=== PATIENT | female | born 1985 | race Caucasian/White ===

== ENCOUNTER → 2020-09-17 14:51 | Outpatient (BNVA) | payer OTHER, SELFPAY | PROVIDERS: Family Provider Family Medicine; PCP Nurse Practitioner Family; Visit Provider Internal Medicine Cardiovascular Disease | DX: R07.9 Chest pain, unspecified (principal); R00.2 Palpitations; E03.9 Hypothyroidism, unspecified; Z82.49 Family history of ischemic heart disease and other diseases of the circulatory system; F17.200 Nicotine dependence, unspecified, uncomplicated | CPT/HCPCS: 80053; 84443; 85025 ==

== ENCOUNTER → 2021-01-29 13:17 | Outpatient (BNVA) | payer OTHER, SELFPAY | PROVIDERS: PCP Nurse Practitioner Family; Visit Provider Podiatrist Foot & Ankle Surgery | DX: M25.571 Pain in right ankle and joints of right foot (principal); G89.29 Other chronic pain; T84.84XA Pain due to internal orthopedic prosthetic devices, implants and grafts, initial encounter; M95.8 Other specified acquired deformities of musculoskeletal system | CPT/HCPCS: 73610 ==

== ENCOUNTER → 2021-03-05 09:45 | Outpatient (BNVA) | payer OTHER, SELFPAY | PROVIDERS: PCP Nurse Practitioner Family; Referring Provider Podiatrist Foot & Ankle Surgery; Visit Provider Podiatrist Foot & Ankle Surgery | DX: Z01.818 Encounter for other preprocedural examination (principal) | CPT/HCPCS: 87635 ==

== ENCOUNTER 2021-03-12 05:45 | Day surgery (SDC) | payer OTHER, SELFPAY ==
[2021-03-11 15:33] VITALS: BMI 42.7
[2021-03-12] VITALS (10 sets, daily range): BP systolic 107–134; BP diastolic 59–94; PULSE 66–94; RESP 12–18; TEMP 36.4–36.8; O2SAT 96–100
--- NOTE | 2021-03-12 06:45 | ANES.PREANE2 ---
Pre-Anesthetic Assessment Pre-Anesthetic Assessment: Height/Weight: Height 1.68 m Weight 120.202 kg Temp Pulse Resp BP Pulse Ox 97.7 F 68 18 116/84 100 03/12/21 06:13 03/12/21 06:13 03/12/21 06:13 03/12/21 06:13 03/12/21 06:13 Preop Diagnosis: Painful hardware right ankle Proposed Procedure: Operation Date: 03/12/21 07:00 Proposed Procedures p Deep hardware removal right ankle 56126 and 49303 T84.84XA(Not Applicable) - Chang Hatch DPM Was Beta Jefferson taken within 24 hours: N/A Was Clonidine taken within 24 hours: N/A Last intake: Intake Last Liquid Date 03/11/21 Last Liquid Time 20:00 Last Solid Date 03/11/21 Last Solid Time 20:00 Social: Social History: Tobacco and No alcohol Exam: Pre-Anes Outpt Exam: alert, oriented x 3, clear to auscultation bilaterally and regular rate & rhythm Airway: Submandibular: WNL Cervical ROM: WNL MP: 2 Dentition: Full History/ROS: No significant history except as noted Pulmonary: Pulmonary: COPD Metabolic: Metabolic: Morbid obesity Anesthetic Plan: ASA status: 2 Anesthesia: General Risk of > 500 ml blood loss (7ml/kg in children): No PFSH Anesthesia PFSH: Medical History Anxiety Depression Family history of coronary artery disease Hypothyroidism Surgical History Hx of hysterectomy Family History Father Hyperlipidemia Stroke Mother Hyperlipidemia Other Alcoholism CAD (coronary artery disease) Hx of CABG Myocardial infarction Social History Smoking and tobacco status: current every day smoker cigarettes Packs smoked per day: 0.5 Alcohol intake: current Alcohol intake frequency: holidays/special occasions only Data Anesthesia Cardiac Studies: No Data to Display
--- NOTE | 2021-03-12 06:51 | PM.OPSURHP ---
Providers/Chief Complaint Primary Care Provider: Dannielle Arce Chief Complaint: Deep hardware removal with arthroscopy right ankle History of Present Illness Nahomi Samuel is a 35 year old female with osteochondral defect and painful retained hardware to the right ankle. There is also hardware failure. She is here n.p.o. since midnight preparation for surgical intervention. Plan is a staged approach for her right ankle pain. Will start with hardware removal followed by MRI and planning for repair of OCD. She is accompanied by her mother. Patient denies any subjective nausea, vomiting, fever, chills, shortness of breath or chest pain. Review of Systems Const: Denies: fever(s), chills or fatigue Eyes: Denies: change in vision Card: Reports: swelling of feet/ankles; Denies: chest pain or palpitations Resp: Denies: dyspnea GI: Denies: abdominal pain, nausea, vomiting, diarrhea or constipation Musc: Reports: extremity pain Skin/Breast: Denies: changes in skin color Neuro: Reports: difficulty walking; Denies: numbness in extremities Medications/Allergies Home Medications Medication Instructions Recorded Confirmed Last Taken Type acetaminophen [Tylenol] 325 mg PO QID PRN 03/11/21 03/12/21 03/11/21 History ibuprofen 800 mg PO TID PRN 03/11/21 03/12/21 03/10/21 History Allergies Allergy/AdvReac Type Severity Reaction Status Date / Time amoxicillin Allergy ALGY-Anaphy Verified 03/11/21 15:32 laxis clindamycin Allergy ALGY-Hives Verified 03/11/21 15:32 enoxaparin [From Lovenox] Allergy ALGY-Hives Verified 03/11/21 15:32 latex Allergy ALGY-Bliste Verified 03/11/21 15:32 r Penicillins Allergy swelling Verified 03/05/21 18:37 and stops breathing povidone-iodine Allergy ALGY-Bliste Verified 03/11/21 15:32 [From Betadine] r soap [From Betadine] Allergy ALGY-Bliste Verified 03/11/21 15:32 r STERI STRIPS Allergy ALGY-Bliste Uncoded 03/11/21 15:32 r PFSH PFSH: Medical History Anxiety Depression Family history of coronary artery disease Hypothyroidism Surgical History Hx of hysterectomy Family History Father Hyperlipidemia Stroke Mother Hyperlipidemia Other Alcoholism CAD (coronary artery disease) Hx of CABG Myocardial infarction Social History Smoking and tobacco status: current every day smoker cigarettes Packs smoked per day: 0.5 Alcohol intake: current Alcohol intake frequency: holidays/special occasions only Dietary Habits: Caffeine: Yes Caffeine intake frequency: coffee Vital Signs Vitals Signs: Last Vital Signs Temp 97.7 F 03/12/21 06:13 Pulse 68 03/12/21 06:13 Resp 18 03/12/21 06:13 BP 116/84 03/12/21 06:13 Pulse Ox 100 03/12/21 06:13 Weight: Weight last 48 hrs Weight 265 lb Physical Exam Narrative: EXAM NARRATIVE: GENERAL: Patient is alert and oriented ?3 and in no acute distress. The following is a focused bilateral lower extremity exam. VASCULAR: Dorsalis pedis and posterior tibial arteries palpable +2. Capillary refill time less than 3 seconds to the distal hallux bilaterally. Calf is supple and nontender proximally and distally. No pedal edema appreciated. Pedal hair growth present. NEUROLOGICAL: Epicritic and protopathic sensations grossly intact to the lower extremities. +2 Achilles tendon reflex noted bilaterally. Negative Tinel sign upon percussion of lower extremity nerves. DERMATOLOGICAL: Lower extremity skin is well-hydrated, normal texture and turgor. There are no open sores or lesions noted to the lower extremities. No erythema or ecchymosis present to the bilateral legs and feet. Cicatrix right medial ankle. MUSCULOSKELETAL: Pain to palpation at the medial gutter and anterior medial aspect of the right ankle. Mild crepitus with range of motion of the right ankle. Muscle strength is 5 out of 5 in all 3 cardinal planes to the right foot and ankle. CARDIOVASCULAR: S1, S2, normal rate, normal rhythm. Dorsalis pedis and posterior tibial arteries palpable. LUNGS: Clear to auscltation, no use of acessory muscles, no crackles or wheezes. A&P Assessment and plan (1) Osteochondral defect of ankle: Status: Acute (2) Painful orthopaedic hardware: Status: Acute History of OCD to the right talar dome medial shoulder history of medial malleolus takedown and OCD repair by another surgeon believe this was done in [place]. She continues to have an OCD present that is symptomatic has failed hardware and painful retained hardware to the right ankle. I am recommending a staged approach starting with deep hardware removal followed by MRI believe that MRI with a hardware present would likely yield artifact and potentially produce a nondiagnostic image. She also complains of pain at hardware site. Hardware removal would be twofold, goal of alleviation of hardware pain as well as diagnostic imaging of MRI for evaluation of osteochondral defect. She may be a candidate for arthroscopic repair utilizing bio cartilage. Plan for deep hardware removal and diagnostic ankle scope under general anesthesia right ankle March 12, 2021. Risks include pain, bleeding, numbness, infection, failure to alleviate pain, hardware failure on extraction, failure to remove hardware and need for further surgical intervention. Deep hardware removal and arthroscopy right ankle. General anesthesia, duration of procedure 60 minutes, 03/12/2021 patient would benefit from popliteal block right lower extremity preoperatively per anesthesia. Coding Level of Care Code Acute Hydration Plant Operator for Rhonda Simons Diagnoses Osteochondral defect of ankle M95.8 Painful orthopaedic hardware T84.84XA
--- NOTE | 2021-03-12 06:55 | W.PM.OPSUD ---
Surgery/Procedure H&P Update DATE OF PROCEDURE: March 12, 2021 DATE H&P PERFORMED: 03/12/21 H&P UPDATE INFORMATION: I have reviewed H&P completed within last 30 days, I have examined patient prior to procedure, No changes to prior documentation and H&P is in [facility] EMR on date indicated PREOP DIAGNOSIS: Painful hardware right ankle PLANNED PROCEDURE: Operation Date: 03/12/21 07:00 Proposed Procedures p Deep hardware removal right ankle [id number] and 10858 T84.84XA(Not Applicable) - Chang Hatch DPM
[2021-03-12] MEDS: sulfamethoxazole-trimeth DS 160-800 mg Tablet 1 TAB PO (07:04)
[2021-03-12] MEDS: sodium chloride 0.9% 1,000 ML 30 ML IV (07:10)
[2021-03-12] MEDS: lidocaine 1% INJ 20 mL INJECTION (07:44)
--- NOTE | 2021-03-12 08:20 | XR_ITS ---
WS: [id number] Right ankle, 3 views, 03/12/2021 Clinical Data: post op Comparison: Right ankle, 01/29/2021. Findings: The medial plate on the distal right tibia has been removed. The orthopedic screws have been removed. There is a small fragment in the middle screw tunnel. There is a larger distal fragment in the dista l screw tunnel. XR/XR ankle RT min 3V* [id number] Impression: Removal of plate and screws from internal fixation of distal right tibial fract ure.
--- NOTE | 2021-03-12 08:20 | P.PCN_ITS ---
PACU note PACU note: VSS, Good respiratory effort, report to MARINE SERVICE MANAGER Post-Anesthesia Exam: awake
--- NOTE | 2021-03-12 08:20 | PM.PACU ---
PACU note PACU note: VSS, Good respiratory effort, report to SWAMPER Post-Anesthesia Exam: awake
[2021-03-12] MEDS: fentaNYL 50 mcg/mL INJ 2mL IVP (08:23)
--- NOTE | 2021-03-12 08:24 | PM.OP ---
Operative Report Date of procedure: March 12, 2021 Pre-op Diagnosis: Painful hardware right ankle Post-op diagnosis: same Post-op Findings: None Procedure Done: Deep hardware removal right ankle Implants: 2-0 Vicryl, 4-0 Vicryl, 4-0 nylon Specimens removed/disposition: 4 screws 1 washer 1 plate Pathology: none sent Surgeon: Chang Hatch D.P.M. Quality Assurance Project Manager: Miri Anesthesia: General Estimated blood loss: Less than 5 mL Tourniquet time: See intraoperative documentation IV fluids: None Urine output: None Complications: None Condition: stable Disposition: PACU Brief History: Painful osteochondral defect operated while she was in the with a medial mall takedown, hardware failure at one of the tibial screws, persistent osteochondral defect requiring further surgical intervention. Will be a staged procedure with initial step of hardware removal followed by MRI for surgical planning of osteochondral defect repair. Patient has had pain with everyday activity standing and walking would like to proceed with surgery. Has been n.p.o. since midnight. Is accompanied by her mother. Informed consent signed by the patient myself. Initial right ankle. Risks include but are not limited to pain, bleeding, numbness, infection, failure to retrieve hardware, hardware breakage, failure to alleviate pain, need for further surgical intervention. Patient is agreeable wishes to proceed. No guarantees written, expressed or implied. Procedure: Under mild sedation the patient was brought to the operating room and placed on the operating table in supine position. A timeout was performed. Anesthesia was then induced by the anesthesia service. Local anesthesia injected by myself total of 20 cc of one-to-one mixture 1% lidocaine and 0.5% Marcaine plain medial ankle block. Well-padded pneumatic tourniquet applied to the right calf. Right lower extremity was scrubbed, prepped and draped utilizing normal aseptic technique. Right foot and ankle were then examined a weighted with an Esmarch bandage and a tourniquet inflated to 250 mmHg. Attention was directed to the previous cicatrix at the medial malleolus right ankle where a linear longitudinal incision was made directly over the previous incision carried down through skin and subcutaneous tissue utilizing a combination of blunt and sharp technique. Care was taken to retract and preserve neurovascular and tendinous structures. All bleeders were ligated and cauterized as necessary. Periosteal incision was made and total of 4 screws 1 plate 1 washer were removed and passed from operative field. 1 screw had broken prior to surgery this was documented on preop x-ray greater than 1 year ago. In my opinion the surgical trauma of removing the threads deep will be more traumatic than leaving the screw. My concern was trapped fine around the screw that had appropriate diameter would violate the ankle mortise at the tibial plafond. This was left intact for this reason. Incision was flushed with saline solution followed by closure of 2-0 Vicryl periosteum, 4-0 Vicryl subcutaneous tissue and 4-0 nylon at skin. Area was dressed with Adaptic, sterile 4 x 4, Kerlix and Aditya wrap. Cam boot was applied. Tourniquet was deflated and a prompt hyperemic response is noted to the distal digits of the right foot. Patient tolerated the procedure and anesthesia well and was transferred to the PACU with vital signs stable and vascular status intact. Following a period of postop monitoring she will be discharged home may be weightbearing as tolerated to elevate her right foot while at rest was provided my cell phone number to be contacted with any questions or concerns. She also provided Bactrim and pain medication to be taken judiciously as needed for pain.
[2021-03-12] MEDS: HYDROcodone-acetaminophen 10-325 mg Tablet 1 TAB PO (09:08)
--- NOTE | 2021-03-12 15:52 | ANE.PACU2 ---
Inpatient post-anesthesia follow up: Airway intact: Yes Vital signs: Temperature 97.6 F Pulse Rate 66 Respiratory Rate 18 Blood Pressure 134/94 Pulse Oximetry 99 Oxygen Delivery Me thod Room Air Oxygen Flow Rate 8 Fraction of Inspir ed Oxygen Hydration adequate: Yes Nausea and vomiting: No Pain level: 2 Mental status: Baseline
== END 2021-03-12 09:29 | disposition home or self-care (01) ==
PROVIDERS: PCP Nurse Practitioner Family; Visit Provider Podiatrist Foot & Ankle Surgery
PROC: (CPT 20680; principal; 2021-03-12 07:00)
DX: T84.84XA Pain due to internal orthopedic prosthetic devices, implants and grafts, initial encounter (principal); F41.9 Anxiety disorder, unspecified; F32.9 Major depressive disorder, single episode, unspecified; E03.9 Hypothyroidism, unspecified; Z82.49 Family history of ischemic heart disease and other diseases of the circulatory system; F17.210 Nicotine dependence, cigarettes, uncomplicated; J44.9 Chronic obstructive pulmonary disease, unspecified; E66.01 Morbid (severe) obesity due to excess calories; Z68.41 Body mass index [BMI] 40.0-44.9, adult
CPT/HCPCS: 20680; 73610; J2405; J2704; J3010; J3490; J7030

== ENCOUNTER 2021-04-06 14:04 | Outpatient (CLI) | payer OTHER, SELFPAY ==
--- NOTE | 2021-04-06 14:30 | MR_ITS ---
WS: [id number] MRI RIGHT ANKLE NONCONTRAST TECHNIQUE: Sagittal proton density, sagittal STIR, axial proton density, axial T1, axial T2 fat sat, coronal proton density, coronal proton density fat sat, coronal T2 fat sat. 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 Palpable marker overlying the medial malleolus. Soft tissue edema involving the medial malleolar soft tissues consistent with recent posto perative changes. Normal lateral malleolus. Osteochondral defect with fragmentation involving the med ial talar dome with sclerosis and edema. This measures approximately 8 x 6 mm. Associated depression and fragmentation. Distal Achilles appears normal. Normal peroneal tendon sheath. Normal peroneus longus and brevis. Sma ll amount of tenosynovitis along the tibialis posterior. Remainder of the extensor and flexor compart ment tendons are unremarkable. Normal plantar aponeurosis. Normal calcaneus. Normal navicular. Hypert rophic changes involving the talar neck. Normal talocalcaneal articulation. Recent hardware removal involving the distal tibial plafond and medial malleolus with screw tracts. S usceptibility artifact with screw fragment involving the distal tibial plafond unchanged since the pr ior examinations. Mild degenerative arthritis ankle mortise. Soft tissue edema. Additional tiny screw fragment in the mid tibial diametaphysis unchanged from the prior radiograph. MR/MR ankle RT wo con* [id number] IMPRESSION: 1. Osteochondral defect involving the medial talar dome with fragmentation and depression consistent with avascular necrosis. Associated sclerosis with a sma ll amount of edema. 2. Postoperative changes about the medial malleolus with subcutaneous soft tis cassandra edema. No drainable fluid collections. 3. Small amount of tenosynovitis involving the tibialis posterior near the pal pable marker. 4. Normal peroneus longus and brevis. Distal Achilles appears normal. 5. Prior hardware removal with retained screw fragments described above.
== END 2021-04-06 14:05 | disposition home or self-care (01) ==
PROVIDERS: PCP Nurse Practitioner Family; Visit Provider Podiatrist Foot & Ankle Surgery
DX: M79.671 Pain in right foot (principal); M65.9 Synovitis and tenosynovitis, unspecified; M21.6X1 Other acquired deformities of right foot
CPT/HCPCS: 73721

== ENCOUNTER → 2021-07-05 15:04 | Outpatient (BNVA) | payer OTHER, SELFPAY | PROVIDERS: PCP Nurse Practitioner Family; Visit Provider Podiatrist Foot & Ankle Surgery | DX: Z20.822 Contact with and (suspected) exposure to COVID-19 (principal); M95.8 Other specified acquired deformities of musculoskeletal system | CPT/HCPCS: 87635 ==

== ENCOUNTER 2021-07-09 06:58 | Day surgery (SDC) | payer OTHER, SELFPAY ==
[2021-07-08 13:39] VITALS: BMI 41.9
[2021-07-09] VITALS (11 sets, daily range): BP systolic 101–130; BP diastolic 68–86; PULSE 71–86; RESP 12–21; TEMP 36.1–36.5; O2SAT 94–99
[2021-07-09] MEDS: sodium chloride 0.9% 1,000 ML 30 ML IV (07:55)
--- NOTE | 2021-07-09 08:15 | ANES.PREANE2 ---
Pre-Anesthetic Assessment Pre-Anesthetic Assessment: Height/Weight: Height 1.68 m Weight 117.934 kg Temp Pulse Resp BP Pulse Ox 97.7 F 71 18 130/86 98 07/09/21 07:54 07/09/21 07:54 07/09/21 07:54 07/09/21 07:54 07/09/21 07:54 Preop Diagnosis: Osteochondral defect right ankle Proposed Procedure: Operation Date: 07/09/21 09:10 Proposed Procedures p Ankle Arthroscopy with debridment and repair of osteochondral defect. [id number] M26.622(Right) - Chang Hatch DPM Familial anesthetic complications: NOne Was Beta Jefferson taken within 24 hours: N/A Was Clonidine taken within 24 hours: N/A Last intake: Intake Last Liquid Date 07/08/21 Last Liquid Time 20:00 Last Solid Date 07/08/21 Last Solid Time 19:00 Social: Social History: Tobacco and No alcohol Exam: Pre-Anes Outpt Exam: alert, oriented x 3, clear to auscultation bilaterally and regular rate & rhythm Airway: Cervical ROM: WNL MP: 3 Dentition: Other (1 missing tooth) Metabolic: Metabolic: Morbid obesity and Thyroid Anesthetic Plan: ASA status: 2 Risk of > 500 ml blood loss (7ml/kg in children): No Meds/Allergies Current Medications: Current Medications Generic Name Dose Route Start Last Admin Trade Name Freq PRN Reason Stop Dose Admin Sodium Chloride 1,000 mls @ 30 ml s/hr 07/09/21 07:30 07/09/21 07:55 Sodium Chloride 0.9% IV 07/10/21 07:29 30 mls/hr .Q24H THOMAS Administration PFSH Anesthesia PFSH: Medical History Anxiety Depression Family history of coronary artery disease Hypothyroidism Surgical History Hx of hysterectomy Family History Father Hyperlipidemia Stroke Mother Hyperlipidemia Other Alcoholism CAD (coronary artery disease) Hx of CABG Myocardial infarction Social History Alcohol intake: current Alcohol intake frequency: holidays/special occasions only Data Anesthesia Cardiac Studies: No Data to Display
--- NOTE | 2021-07-09 09:15 | W.PM.OPSUD ---
Surgery/Procedure H&P Update DATE OF PROCEDURE: July 09, 2021 DATE H&P PERFORMED: 07/05/21 H&P UPDATE INFORMATION: I have reviewed H&P completed within last 30 days, I have examined patient prior to procedure, No changes to prior documentation and H&P is in [facility] EMR on date indicated PREOP DIAGNOSIS: Osteochondral defect right ankle PLANNED PROCEDURE: Operation Date: 07/09/21 09:10 Proposed Procedures p Ankle Arthroscopy with debridment and repair of osteochondral defect. [id number] M26.622(Right) - Chang Hatch DPM
--- NOTE | 2021-07-09 09:16 | P.OP_ITS ---
Operative Report Date of procedure: July 09, 2021 Pre-op Diagnosis: Osteochondral defect right ankle Post-op diagnosis: same Post-op Findings: Impressive osteochondral defect at the medial shoulder of the left talus Procedure Done: Ankle arthroscopy with extensive debridement and osteochondral defect repair. CPT code 34488 Implants: 4-0 nylon, Arthrex bio cartilage 1 cc Surgeon: Chang Hatch D.P.M. 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 Risks include pain, bleeding, numbness, infection, neuritis, superficial peroneal neuritis, failure to alleviate pain and need for further surgical intervention. Patient is agreeable wishes to proceed no guarantees written, expressed or implied. Procedure: Under mild sedation the patient was brought to the operating room and placed on the operating table in supine position. A timeout was performed. Anesthesia was then administered by the anesthesia service. Well-padded pneumatic tourniquet is applied to the left high calf. Left lower extremity was then scrubbed, prepped and draped utilizing normal aseptic technique. Bone marrow aspirate kit utilized to harvest 60 cc of bone marrow aspirate from the left calcaneus lateral approach this area was then flushed and closed with single nylon stitch. This was passed to the back table to be spun down to PRP to be mixed with extra cell layer matrix. Attention was then directed to the left anterior ankle or medial lateral borders were established in standard fashion medial to the tibialis anterior and lateral to the peroneus tertius. Extensive debridement performed of hemorrhagic synovitis and free-floating cartilaginous flaps were excised, microfracture performed and a viable margin of the osteochondral defect was established utilizing curettage, ankle was then dried of fluid and the defect filled with extracellular matrix with glue covering. After 5 minutes smooth range of motion was appreciated of the left ankle. Incision sites were flushed with saline solution and closed with 4-0 nylon stitch. Incision sites were then dressed with Adaptic, sterile 4 x 4, Kerlix and Aditya wrap. Cam boot was applied. Tourniquet was deflated and a prompt hyperemic response was noted to the distal digits of the left foot. Patient tolerated the procedure and anesthesia well was transferred to the PACU with vital signs stable and vascular status intact. She is to remain strict nonweightbearing to the left lower extremity for the ne xt 6 weeks. She will be given a prescription for crutches to be filled out part of the [employer] equipment.
[2021-07-09] MEDS: vancomycin 1,500 MG/300 ML PIGGYBACK 200 MG IV (09:29)
--- NOTE | 2021-07-09 10:04 | SUR.OPER ---
1004 acd-a 30 ML added to sterile field for dr redding to use. REF PN [id number] [facility] [id number] LOT [id number] EXP
--- NOTE | 2021-07-09 11:48 | XR_ITS ---
WS: [id number] Right ankle, 3 views, 07/09/2021 Clinical Data: post op Comparison: Right ankle, 03/12/2021. Findings: There are postsurgical tunnels in the distal tibia. In the middle tunnel there is a small remaining f ragment. In the distal tunnel there is a screw fragment. Inferior to the medial malleolus there is a small fragment. The ankle mortise shows irregularity especially of the medial aspect. No new fractures are seen. XR/XR ankle RT min 3V* [id number] Impression: 1. No change in appearance of the postsurgical tunnels and fragment retention. 2. Osteoarthritis of the ankle mortise especially the medial and posterior aspe ct.
[2021-07-09] MEDS: fentaNYL 50 mcg/mL INJ 2mL IVP (11:59)
[2021-07-09] MEDS: oxyCODONE-APAP 10-325 mg Tablet 1 TAB PO (12:52)
--- NOTE | 2021-07-09 14:19 | ANE.PACU2 ---
Inpatient post-anesthesia follow up: Airway intact: Yes Vital signs: Temperature 97 F Pulse Rate 74 Respiratory Rate 16 Blood Pressure 125/85 Pulse Oximetry 98 Oxygen Delivery Me thod Room Air Oxygen Flow Rate Fraction of Inspir ed Oxygen Hydration adequate: Yes Nausea and vomiting: No Pain level: 2 Mental status: Baseline
== END 2021-07-09 13:25 | disposition home or self-care (01) ==
PROVIDERS: PCP Nurse Practitioner Family; Visit Provider Podiatrist Foot & Ankle Surgery
PROC: (CPT 29898; principal; 2021-07-09 09:00)
DX: M25.571 Pain in right ankle and joints of right foot (principal); T84.84XA Pain due to internal orthopedic prosthetic devices, implants and grafts, initial encounter; E03.9 Hypothyroidism, unspecified; I25.2 Old myocardial infarction; F17.210 Nicotine dependence, cigarettes, uncomplicated; Z86.73 Personal history of transient ischemic attack (TIA), and cerebral infarction without residual deficits; Z88.0 Allergy status to penicillin; Z88.2 Allergy status to sulfonamides; Z88.1 Allergy status to other antibiotic agents; Z91.040 Latex allergy status; Z82.49 Family history of ischemic heart disease and other diseases of the circulatory system
CPT/HCPCS: 29898; 73610; C1762; J1100; J1885; J2405; J2704; J2795; J3010; J3370; J3490; J7030

== ENCOUNTER → 2021-07-26 12:45 | Outpatient (BNVA) | payer OTHER, SELFPAY | PROVIDERS: PCP Nurse Practitioner Family; Visit Provider Podiatrist Foot & Ankle Surgery | DX: M95.8 Other specified acquired deformities of musculoskeletal system (principal); M25.579 Pain in unspecified ankle and joints of unspecified foot; T84.84XA Pain due to internal orthopedic prosthetic devices, implants and grafts, initial encounter; X58.XXXA Exposure to other specified factors, initial encounter | CPT/HCPCS: 73610 ==

== ENCOUNTER 2021-08-25 10:48 | Outpatient (CLI) | payer OTHER, SELFPAY | END 2021-08-25 10:49 | disposition home or self-care (01) | LOC: SPT 10:51 | PROVIDERS: PCP Nurse Practitioner Family; Visit Provider Podiatrist Foot & Ankle Surgery | DX: Z46.89 Encounter for fitting and adjustment of other specified devices (principal); M95.8 Other specified acquired deformities of musculoskeletal system; T84.84XD Pain due to internal orthopedic prosthetic devices, implants and grafts, subsequent encounter | CPT/HCPCS: L1902 ==

== ENCOUNTER → 2022-10-31 09:02 | Outpatient (BNVA) | payer OTHER, SELFPAY | PROVIDERS: PCP Nurse Practitioner Family; Visit Provider Podiatrist Foot & Ankle Surgery | DX: T84.84XA Pain due to internal orthopedic prosthetic devices, implants and grafts, initial encounter (principal); Y79.2 Prosthetic and other implants, materials and accessory orthopedic devices associated with adverse incidents; M95.8 Other specified acquired deformities of musculoskeletal system | CPT/HCPCS: 73610 ==

== ENCOUNTER 2023-08-07 09:13 | Outpatient (CLI) | payer OTHER, SELFPAY ==
--- NOTE | 2023-08-07 09:30 | MR_ITS ---
WS: [id number] MRI RIGHT ANKLE WITHOUT CONTRAST. COMPARISON: Prior MRI 04/06/2021. Radiograph 10/31/2022 Multiplanar, multisequence imaging is performed without contrast. Artifact noted to the distal tibia and fibula retained screw fragment set of been previously describe d. Distortion of the soft tissues and osseous structures. There is a large osteochondral defect involving the lateral talar dome measuring at least 10 x 11 mm. There are several bony fragments although not a lot of edema. Bony fragments extends into the tibiot alar joint space. There is narrowing of the tibiotalar joint space but not a significant amount of fl uid. Seen only on the coronal imaging may be an additional osteochondral defect along the more latera l distal talus. This could be a small fragment or loose body closely associated with the attachment o f the deltoid ligament. Distal fibula is intact. Achilles tendon and the peroneal tendons are normal. No significant joint ef fusion. Flexor and extensor tendon tendons are normal. Tibialis posterior tendon is normal today. No ligament tear identified. IMPRESSION: 1. Moderate to large osteochondral defect involving the medial talar dome. There are multiple associa severo osseous fragments. Some of these osseous fragments extend into the tibiotalar joint space. Modera te narrowing of the tibiotalar joint. Although no loose bodies identified in the joint space the frag ments do encroach into the joint space, similar to the prior exam. 2. There is an additional possible osteochondral defect noted at the site of the deltoid ligament att achment to the talus. This was not seen on the prior study. Only seen on a few sequences today. 3. No significant joint effusion. 4. Study compromised by artifact from the retained hardware in the distal tibia.
== END 2023-08-07 09:14 | disposition home or self-care (01) ==
LOC: RAD 09:14
PROVIDERS: PCP Nurse Practitioner Family; Visit Provider Podiatrist Foot & Ankle Surgery
DX: M21.6X1 Other acquired deformities of right foot (principal); T84.84XA Pain due to internal orthopedic prosthetic devices, implants and grafts, initial encounter; Y79.2 Prosthetic and other implants, materials and accessory orthopedic devices associated with adverse incidents; Z98.890 Other specified postprocedural states
CPT/HCPCS: 73721

== ENCOUNTER 2023-08-08 14:52 | Outpatient (CLI) | payer OTHER, SELFPAY | END 2023-08-08 14:53 | disposition home or self-care (01) | LOC: SPT 14:56 | PROVIDERS: PCP Nurse Practitioner Family; Visit Provider Podiatrist Foot & Ankle Surgery | DX: Z46.89 Encounter for fitting and adjustment of other specified devices (principal); M95.8 Other specified acquired deformities of musculoskeletal system | CPT/HCPCS: 97760; L4361 ==

== ENCOUNTER 2024-02-01 14:30 | Outpatient (RCR) | payer OTHER, SELFPAY | END 2024-02-25 23:59 | disposition home or self-care (01) | LOC: SPT 14:30 | PROVIDERS: PCP Nurse Practitioner Family; Visit Provider Podiatrist | DX: Z47.1 Aftercare following joint replacement surgery (principal); Z96.661 Presence of right artificial ankle joint | CPT/HCPCS: 97110; 97161; G0283 ==

== ENCOUNTER 2024-02-26 06:00 | Outpatient (RCR) | payer OTHER, SELFPAY | END 2024-03-27 23:59 | disposition home or self-care (01) | LOC: SPT 06:00 | PROVIDERS: PCP Nurse Practitioner Family; Visit Provider Podiatrist | DX: Z47.1 Aftercare following joint replacement surgery (principal); Z96.661 Presence of right artificial ankle joint | CPT/HCPCS: 97110 ==

== ENCOUNTER 2024-09-09 11:54 | Emergency (ER) | payer MEDICAID, SELFPAY ==
[2024-09-09 11:58] VITALS: BP 119/73; PULSE 90; TEMP 36.7; O2SAT 98
--- NOTE | 2024-09-09 13:50 | XR_ITS ---
WS: [id number] XR sacrum coccyx min 2V [id number] REASON FOR EXAM: slip fall ice, pain FINDINGS: No acute abnormality of the sacrum. Fracture of the third from the last coccygeal segment with mild anterior displacement of the distalmo st fragment and widening of the articular interval between the fractured coccygeal segment and the ne xt inferior coccygeal segment. XR/XR sacrum coccyx min 2V [id number] IMPRESSION: Coccygeal fracture as above.
--- NOTE | 2024-09-09 13:50 | XR_ITS ---
WS: [id number] XR lumbar spine 2-3V* [id number] REASON FOR EXAM: slip fall ice, pain FINDINGS: Minimal rotatory levoscoliosis. Mild straightening of the normal lordosis. No acute compression fracture. Intervertebral disc spaces are intact and relatively well preserved. No spondylolisthesis or spondylolysis. Spina bifida occulta of S1. XR/XR lumbar spine 2-3V* [id number] IMPRESSION: No acute abnormality.
--- NOTE | 2024-09-09 14:20 | W.ED.BACK ---
HPI - Back Pain/Injury General: Chief Complaint: Back Pain/Injury Stated Complaint: fell down stairs Time Seen by Provider: 09/09/24 13:10 Source: patient Mode of arrival: ambulatory Limitations: no limitations History of Present Illness: 39yo female presents with low back and tailbone pain following a slip and fall on the ice this morning. Patient reports that she was on her bottom step and went to step down, but slipped on the ice. States that she landed directly on her tailbone/buttocks. Reports that she is able to sit on her left hip area, but not directly on her buttocks. States that when she stands she does have tightening of the entire pelvic region. She denies hitting her head, loss consciousness, incontinence, any other concern at this time. Patient reports previous hysterectomy. Related Data Home Medications Medication Instructions Recorded Confirmed acetaminophen 325 mg capsule 325 mg PO QID PRN Pain 03/11/21 08/08/23 (Tylenol) ibuprofen 800 mg tablet 800 mg PO TID PRN Pain 03/11/21 08/08/23 levothyroxine 50 mcg capsule 50 mcg PO DAILY 05/24/23 08/08/23 Previous Rx's Medication Instructions Recorded albuterol sulfate 90 mcg/actuation 2 puff inhalation Q6H #8.5 grams 05/24/23 aerosol inhaler azithromycin 250 mg tablet See Rx Instructions PO .COMPLEX #6 05/24/23 tabs fluticasone propionate 50 1 spray intranasal DAILY PRN 05/24/23 mcg/actuation nasal allergy symptoms #16 grams spray,suspension CAM walker #1 ea 08/08/23 tramadol 50 mg tablet 50 mg PO Q8H PRN pain 30 days #90 09/19/23 tabs cyclobenzaprine 10 mg tablet 10 mg PO TID PRN muscle spasm #20 09/09/24 tabs hydrocodone 5 mg-acetaminophen 325 1 tab PO Q8H PRN pain #9 tabs 09/09/24 mg tablet ondansetron 4 mg disintegrating 4 mg PO Q8H PRN nausea and 09/09/24 tablet vomiting #20 tabs Allergies Allergy/AdvReac Type Severity Reaction Status Date / Time Sulfa (Sulfonamide Allergy Intermediate Bad Rash, Verified 09/09/24 12:05 Antibiotics) and eyes swollen shut adhesive Allergy ALGY-Bliste Verified 09/09/24 12:05 r amoxicillin Allergy ALGY-Anaphy Verified 09/09/24 12:05 laxis clindamycin Allergy ALGY-Hives Verified 09/09/24 12:05 enoxaparin [From Lovenox] Allergy ALGY-Hives Verified 09/09/24 12:05 latex Allergy ALGY-Bliste Verified 09/09/24 12:05 r Penicillins Allergy swelling Verified 09/09/24 12:05 and stops breathing povidone-iodine Allergy ALGY-Bliste Verified 09/09/24 12:05 [From Betadine] r soap [From Betadine] Allergy ALGY-Bliste Verified 09/09/24 12:05 r PFSH ED PFSH: Medical History Family history of coronary artery disease Depression Anxiety Hypothyroidism Surgical History Hx of hysterectomy Family History Father Hyperlipidemia Stroke Mother Hyperlipidemia Other Alcoholism CAD (coronary artery disease) Hx of CABG Myocardial infarction Social History Smoking and tobacco/nicotine status: current every day tobacco/nicotine user cigarettes Packs smoked per day: 0.5 Alcohol intake: current Alcohol intake frequency: holidays/special occasions only Substance/Drug Use: never Course Vital Signs: Vital signs: Vital Signs Temperature 98.1 F 09/09/24 11:58 Pulse Rate 90 09/09/24 11:58 Blood Pressure 119/73 09/09/24 11:58 Pulse Oximetry 98 09/09/24 11:58 Oxygen Delivery Me thod Room Air 09/09/24 11:58 MDM - Back Pain/Injury Medical Decision Making 39yo female presents with low back and tailbone pain following a slip and fall on the ice this morning. Patient reports that she was on her bottom step and went to step down, but slipped on the ice. States that she landed directly on her tailbone/buttocks. Reports that she is able to sit on her left hip area, but not directly on her buttocks. States that when she stands she does have tightening of the entire pelvic region. She denies hitting her head, loss consciousness, incontinence, any other concern at this time. Patient reports previous hysterectomy. Patient is nontoxic in appearance. Vital signs are stable. Differential diagnoses include but are not limited to: Coccyx fracture, pelvic fracture, lumbar fracture, contusion, muscle strain Will proceed with x-ray imaging of the lumbar spine as well as coccyx. Patient did receive ketorolac and orphenadrine while in the emergency department to help with her pain. X-ray does show coccygeal fracture. No bony abnormality noted of the lumbar spine. Discussed these findings with patient. Patient initially reported no improvement in her pain after ketorolac and orphenadrine, but reported some improvements as she was able to ambulate to the bathroom and reported her pain as 4/10. Discussed fracture with patient. Advised we would proceed with a short course of pain medication for severe pain as well as cyclobenzaprine and ondansetron to patient's pharmacy. Sedation precautions provided with pain medications. Discussed with patient use of [id number] stool softeners due to the increased risk of constipation with pain medications. Recommend patient follow-up with primary care, call in the next few days with an update of symptoms and to discuss to recheck. Recommend return to the emergency department if any rapid worsening symptoms, further injury, and as needed. Patient states understanding and has no further questions or concerns at this time. Medical Records I reviewed the patient's medical records. Labs I reviewed the patient's lab results. Radiology Impressions Lumbar Spine X-Ray 09/09/24 13:50 IMPRESSION: No acute abnormality. Sacrum and Coccyx X-Ray 09/09/24 13:50 IMPRESSION: Coccygeal fracture as above. All radiology interpretation(s) finalized by discharge Discharge Plan Discharge Patient Disposition: Home Clinical Impression: Closed fracture of coccyx Qualifiers: Encounter type: initial encounter Qualified Code(s): S32.2XXA - Fracture of coccyx, initial encounter for closed fracture Fall from slipping on ice Qualifiers: Encounter type: initial encounter Qualified Code(s): W00.9XXA - Unspecified fall due to ice and snow, initial encounter Condition: Stable Prescriptions: New cyclobenzaprine 10 mg tablet 10 mg PO TID PRN (Reason: muscle spasm) Qty: 20 0RF ondansetron 4 mg tablet,disintegrating 4 mg PO Q8H PRN (Reason: nausea and vomiting) Qty: 20 0RF hydrocodone-acetaminophen 5-325 mg tablet 1 tab PO Q8H PRN (Reason: pain) Qty: 9 0RF Held tramadol 50 mg tablet 50 mg PO Q8H PRN (Reason: pain) 30 Days Qty: 90 0RF Hold Instructions: Resume on 09/12/24. Hold while taking hydrocodone No Action levothyroxine 50 mcg capsule 50 mcg PO DAILY azithromycin 250 mg tablet See Rx Instructions PO .COMPLEX Qty: 6 0RF Rx Instructions: For 250 mg dose pack: take 500 mg today (day 1), then 250 mg for 4 days (days 2-5) PO albuterol sulfate 90 mcg/actuation HFA aerosol inhaler 2 puff inhalation Q6H Qty: 8.5 0RF Rx Instructions: 2 puffs inhaled every 6 hours as needed fluticasone propionate 50 mcg/actuation spray,suspension 1 spray intranasal DAILY PRN (Reason: allergy symptoms) Qty: 16 0RF Rx Instructions: administer into each nostril (DME) SATHISH patton See Rx Instructions .Route .MEDSUPPLY Qty: 1 0RF Rx Instructions: As directed ibuprofen 800 mg Tablet 800 mg PO TID PRN (Reason: Pain) acetaminophen [Tylenol] 325 mg Capsule 325 mg PO QID PRN (Reason: Pain) Discharge Orders: Discharge ED (Routine); Ordered 09/09/24 Ordered By: Tigre Zhao Referrals: Dannielle Arce, WORKERS COMPENSATION ADMINISTRATOR [Primary Care Provider] - Patient Instructions: Coccyx Injury (ED), Opioid Safety, Pain Management Activity Restrictions/Additional Instructions: You do have a coccyx fracture noted on the x-ray. There is no specific treatment for coccyx fracture, just symptomatic care You may use a travel neck pillow as a cushion to sit on to avoid pressure on the coccyx Short course hydrocodone was sent to your pharmacy for use for severe pain. Please do not take tramadol or any other narcotic medication while taking hydrocodone Cyclobenzaprine has been sent to your pharmacy for mild to moderate pain as well as muscular pain that can be associated with a coccyx fracture. Please do not drive operate heavy machinery while taking either hydrocodone or cyclobenzaprine Ondansetron has been sent to the pharmacy for nausea that is often associated with pain medications. Avoid bending and heavy lifting for the next several days. Activity as tolerated Follow-up with primary care, call in the next 1 to 2 days with an update of symptoms and to discuss to recheck Return to the emergency department if any rapid worsening symptoms, further injury, and as needed. 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
[2024-09-09] MEDS: orphenadrine 30 mg/mL Inj 2 mL 60 MG IM (14:23)
[2024-09-09] MEDS: ketorolac 30 mg/mL INJ IM (14:23)
[2024-09-09 15:46] VITALS: BP 116/82; PULSE 80; O2SAT 97
== END 2024-09-09 15:47 | disposition home or self-care (01) ==
PROVIDERS: Emergency Provider Nurse Practitioner; PCP Nurse Practitioner Family
DX: S32.2XXA Fracture of coccyx, initial encounter for closed fracture (principal); W00.9XXA Unspecified fall due to ice and snow, initial encounter; F17.210 Nicotine dependence, cigarettes, uncomplicated
CPT/HCPCS: 72100; 72220; 96372; 99284; J1885; J2360